=== PATIENT | male | born 1995 | race Caucasian/White ===

== ENCOUNTER 2019-07-12 14:14 | Emergency (ER) | payer SELFPAY ==
[2019-07-12] MEDS ORDERED: methylPREDNISolone Sod Succ/PF 125 MG/2 ML VIAL ONE ×2 (14:18→14:31)
[2019-07-12] MEDS ORDERED: EPINEPHrine 1 MG/ML AMP ONE (14:18)
[2019-07-12] MEDS ORDERED: diphenhydrAMINE 50 MG/ML VIAL ONE (14:18)
[2019-07-12] MEDS ORDERED: Famotidine/PF 20 mg/2ml Vial ONE (14:20)
[2019-07-12] MEDS ORDERED: Ondansetron PF 4 MG/2 ML Vial ONE (14:39)
[2019-07-12] MEDS ORDERED: Ondansetron ODT 4 MG TAB ONE (14:41)
== END 2019-07-12 18:02 | disposition home or self-care (01) ==
LOC: ERS 14:14
DX: L50.0 Allergic urticaria (principal); F17.210 Nicotine dependence, cigarettes, uncomplicated
CPT/HCPCS: 96361; 96372; 96374; 96375; J0171; J1200; J2405; J2930; Q0162; S0028